=== PATIENT | male | born 1950 | race African-American/Black ===

== ENCOUNTER 2018-08-30 14:46 | Emergency (ER) | payer MEDICARE, BC ==
[~2018-08-30] VITALS: Ht 177.8 cm; Wt 88.5 kg
[~2018-08-30 14:46] MED LIST: NORVASC5 MG ORAL; TRIAMTERENE-HC1 EAC7 PO
[2018-08-30] MEDS ORDERED: ATORVASTATIN CA20 MG ORAL (14:56)
[2018-08-30] MEDS ORDERED: ASPIR 8181 MG ORAL (14:56)
--- NOTE | 2018-08-30 15:25 | Emergency Room Report ---
History of Present Illness General Chief Complaint: General Complaint Source: Patient Present Illness HPI Patient states that 6 days ago he noted joint pain. He states that he was in his normal state of health. He had no recent illness. He denied flulike symptoms. He states he started getting swelling and pain in both his ankles and feet. He states that he also has pain in his hands, wrists and elbows. He states that he also has pain in his back. He feels like every joint hurts. He denies fever or chills. He denies cough or congestion. He denies chest pain or shortness of breath. He denies abdominal pain. He states he has had lack of appetite. He denies recent travel. He denies camping. He denies nausea or vomiting. He denies diarrhea or constipation. He has never had similar symptoms. He has no other complaints. Allergies: Coded Allergies: PENICILLINS (Verified Allergy, Unknown, 08/30/18) Patient History Past Medical History: none, see triage record, HTN, GERD Social History: Reports: alcohol use, drug use; Denies: smoking Reviewed Nursing Documentation: PMH: Agreed; PSxH: Agreed Nursing Documentation-PMH Past Medical History: No History, Except For Hx Cardiac Problems: Yes Hx Hypertension: Yes Hx Cancer: No Hx Gastrointestinal Problems: Yes Hx Neurological Problems: Yes Hx Vertigo: Yes Review of Systems All Other Systems: negative except mentioned in HPI Physical Exam Vital Signs Date Time Temp Pulse Resp B/P (MAP) Pulse Ox O2 Delivery O2 Flow Rate FiO2 08/30/18 14:53 98.6 80 18 123/80 96 Room Air Sp02 EP Interpretation: reviewed, normal General Appearance: no apparent distress, alert, GCS 15, non-toxic Head: normocephalic, atraumatic Eyes: bilateral eye normal inspection, bilateral eye PERRL ENT: hearing grossly normal, normal pharynx, no angioedema, normal voice Neck: full range of motion, supple/symm/no masses Respiratory: chest non-tender, lungs clear, normal breath sounds, no respiratory distress, no retraction, no accessory muscle use, speaking full sentences Cardiovascular #1: regular rate, rhythm, no edema Gastrointestinal: normal bowel sounds, non tender, soft, non-distended, no guarding, no rebound Rectal: deferred Musculoskeletal: back normal, gait/station normal, normal range of motion, other - Bilateral ankle swelling, foot swelling, finger joint swelling bilaterally. Neurologic: alert, oriented x3, responsive, motor strength/tone normal, sensory intact, speech normal Psychiatric: judgement/insight normal, memory normal, mood/affect normal, no suicidal/homicidal ideation Skin: normal color, no rash, warm/dry, well hydrated Medical Decision Making Diagnostic Impression: Primary Impression: Inflammatory arthritis Additional Impressions: Reactive arthritis Renal insufficiency Hypokalemia ER Course This patient has an inflammatory arthritis. He also has renal insufficiency that I am unsure of the acuity of. Possibly he could be developing a glomerulonephritis. Unfortunately, I do not have a recent comparison chemistry. The patient's ESR and CRP are also elevated consistent with a reactive arthritis/inflammatory process. Also my differential is other inflammatory diseases such as rheumatoid arthritis. At this time, the patient is well-appearing and nontoxic. The patient has excellent outpatient follow-up with his primary care physician. He has an appointment for tomorrow to go in and see his primary care physician. The patient was given oral potassium for his hypokalemia. I will also place the patient on a low-dose potassium supplement. He was educated on the findings on his laboratory workup. He was instructed on the importance of close follow-up and repeat labs in the next 48 hours. The patient is given close return precautions and follow-up instructions. Laboratory Tests Test 08/30/18 15:18 White Blood Count 12.7 K/UL (4.8-10.8) H Red Blood Count 4.13 M/UL (4.70-6.10) L Hemoglobin 13.1 G/DL (14.2-18.0) L Hematocrit 36.9 % (42.0-52.0) L Mean Corpuscular Volume 89 FL (80-99) Mean Corpuscular Hemoglobin 31.6 PG (27.0-31.0) H Mean Corpuscular Hemoglobin Concent 35.4 G/DL (32.0-36.0) Red Cell Distribution Width 11.5 % (11.6-14.8) L Platelet Count 403 K/UL (150-450) Mean Platelet Volume 5.7 FL (6.5-10.1) L Neutrophils (%) (Auto) 73.6 % (45.0-75.0) Lymphocytes (%) (Auto) 14.1 % (20.0-45.0) L Monocytes (%) (Auto) 8.6 % (1.0-10.0) Eosinophils (%) (Auto) 3.1 % (0.0-3.0) H Basophils (%) (Auto) 0.7 % (0.0-2.0) Erythrocyte Sedimentation Rate 90 MM/HR (0-20) H Urine Color Pale yellow Urine Appearance Clear Urine pH 7 (4.5-8.0) Urine Specific [place] 1.010 (1.005-1.035) Urine Protein 1+ (NEGATIVE) H Urine Glucose (UA) Negative (NEGATIVE) Urine Ketones Negative (NEGATIVE) Urine Blood 1+ (NEGATIVE) H Urine Nitrite Negative (NEGATIVE) Urine Bilirubin Negative (NEGATIVE) Urine Urobilinogen Normal MG/DL (0.0-1.0) Urine Leukocyte Esterase Negative (NEGATIVE) Urine RBC 2-4 /HPF (0 - 0) H Urine WBC 0-2 /HPF (0 - 0) Urine Squamous Epithelial Cells None /LPF (NONE/OCC) Urine Bacteria None /HPF (NONE) Sodium Level 137 MMOL/L (136-145) Potassium Level 2.7 MMOL/L (3.5-5.1) *L Chloride Level 97 MMOL/L (98-107) L Carbon Dioxide Level 30 MMOL/L (21-32) Anion Gap 11 mmol/L (5-15) Blood Urea Nitrogen 27 mg/dL (7-18) H Creatinine 1.6 MG/DL (0.55-1.30) H Estimate Glomerular Filtration Rate 52.5 mL/min (>60) Glucose Level 100 MG/DL (74-106) Calcium Level 9.0 MG/DL (8.5-10.1) Total Bilirubin 0.6 MG/DL (0.2-1.0) Aspartate Amino Transferase (AST) 34 U/L (15-37) Alanine Aminotransferase (ALT) 54 U/L (12-78) Alkaline Phosphatase 57 U/L (46-116) Total Creatine Kinase 256 U/L (26-308) Creatine Kinase MB 3.3 NG/ML (0.0-3.6) Creatine Kinase MB Relative Index 1.2 Troponin I 0.014 ng/mL (0.000-0.056) C-Reactive Protein, Quantitative 11.2 mg/dL (0.00-0.90) H Total Protein 8.5 G/DL (6.4-8.2) H Albumin 3.3 G/DL (3.4-5.0) L Globulin 5.2 g/dL Albumin/Globulin Ratio 0.6 (1.0-2.7) L Urine Opiates Screen Negative (NEGATIVE) Urine Barbiturates Screen Negative (NEGATIVE) Phencyclidine (PCP) Screen Negative (NEGATIVE) Urine Amphetamines Screen Negative (NEGATIVE) Urine Benzodiazepines Screen Negative (NEGATIVE) Urine Cocaine Screen Negative (NEGATIVE) Urine Marijuana (THC) Screen Negative (NEGATIVE) EKG Diagnostic Results Rate: normal Rhythm: NSR ST Segments: no acute changes Rhythm Strip Diag. Results EP Interpretation: yes Rate: 80's Rhythm: NSR, no PVC's, no ectopy Chest X-Ray Diagnostic Results Chest X-Ray Diagnostic Results : Chest X-Ray Ordered: Yes # of Views/Limited/Complete: 1 View Indication: Other EP Interpretation: Yes Interpretation: no consolidation, no effusion, no pneumothorax, no acute cardiopulmonary disease Impression: No acute disease Last Vital Signs Date Time Temp Pulse Resp B/P (MAP) Pulse Ox O2 Delivery O2 Flow Rate FiO2 08/30/18 14:53 98.6 80 18 123/80 96 Room Air Status: improved Disposition: HOME, SELF-CARE Condition: Improved Jazmin Vizcaino DO Aug 30, 2018 15:25
--- NOTE | 2018-08-30 15:31 | Diagnostic Imaging Report ---
Indication: Chest pain Comparison: None A single view chest radiograph was obtained. Findings: Cardiomediastinal appearance is within normal limits for age. The lungs are clear. Pulmonary vascularity is appropriate. The diaphragmatic contour is smooth and costophrenic angles are sharp. No pleural effusions are identified. The bones are unremarkable. Impression: No acute findings
[2018-08-30 15:39] VITALS: BP 123/80
[2018-08-30 15:48] LABS: BASOPHILS % (AUTO) 0.7 % (0.0-2.0); EOSINOPHILS % (AUTO) 3.1 % (0.0-3.0); HEMATOCRIT 36.9 % (42.0-52.0); HEMOGLOBIN 13.1 G/DL (14.2-18.0); LYMPHOCYTES % (AUTO) 14.1 % (20.0-45.0); MEAN CORPUSCULAR VOLUME 89 FL (80-99); MONOCYTES % (AUTO) 8.6 % (1.0-10.0); NEUTROPHILS % (AUTO) 73.6 % (45.0-75.0); PLATELET COUNT 403 K/UL (150-450); RED BLOOD COUNT 4.13 M/UL (4.70-6.10); RED CELL DISTRIBUTION WIDTH 11.5 % (11.6-14.8); WHITE BLOOD COUNT 12.7 K/UL (4.8-10.8)
[2018-08-30 15:50] LABS: APPEARANCE,URINE CLEAR; BILIRUBIN, URINE NEGATIVE (NEGATIVE); COLOR,URINE PALE YELLOW; GLUCOSE, URINE (UA) NEGATIVE (NEGATIVE); KETONES,URINE NEGATIVE (NEGATIVE); LEUKOCYTE ESTERASE ,URINE NEGATIVE (NEGATIVE); NITRITE,URINE NEGATIVE (NEGATIVE); PH,URINE 7 (4.5-8.0); PROTEIN,URINE 1+ (NEGATIVE); UROBILINOGEN,URINE NORMAL MG/DL (0.0-1.0)
[2018-08-30 16:17] LABS: ALANINE AMINOTRANSFERASE 54 U/L (12-78); ALBUMIN 3.3 G/DL (3.4-5.0); ALBUMIN/GLOBULIN RATIO 0.6 (1.0-2.7); ALKALINE PHOSPHATASE 57 U/L (46-116); ANION GAP 11 mmol/L (5-15); ASPARTATE AMINO TRANSFERASE 34 U/L (15-37); BILIRUBIN,TOTAL 0.6 MG/DL (0.2-1.0); BLOOD UREA NITROGEN 27 mg/dL (7-18); CARBON DIOXIDE 30 MMOL/L (21-32); CHLORIDE 97 MMOL/L (98-107); CKMB 3.3 NG/ML (0.0-3.6); CREATINE KINASE 256 U/L (26-308); CREATININE 1.6 MG/DL (0.55-1.30); SODIUM 137 MMOL/L (136-145)
[2018-08-30 16:20] LABS: POTASSIUM 2.7 MMOL/L (3.5-5.1)
[2018-08-30 17:02] VITALS: BP 138/85
[2018-08-30 17:05] VITALS: BP 138/85
[2018-08-30] MEDS ORDERED: ACETAMINOPHEN500 M3 ORAL (17:12)
[2018-08-30] MEDS ORDERED: POTASSIUM CHLO10 ME3 ORAL (17:12)
--- NOTE | 2018-09-02 15:07 | Cardiology Report ---
APPROVED REPORT EKG Measurement Heart [id number] ID [id number] Normal sinus rhythm Incomplete right bundle branch block Prolonged QT Abnormal ECG
== END 2018-08-30 17:14 | disposition home or self-care (01) ==
LOC: EMR 15:20
DX: M19.90 Unspecified osteoarthritis, unspecified site (principal); M02.39 Reiter's disease, multiple sites; N28.9 Disorder of kidney and ureter, unspecified; E87.6 Hypokalemia; R42 Dizziness and giddiness; I10 Essential (primary) hypertension; K21.9 Gastro-esophageal reflux disease without esophagitis; M79.672 Pain in left foot; M79.671 Pain in right foot; M25.572 Pain in left ankle and joints of left foot; M25.571 Pain in right ankle and joints of right foot; M79.643 Pain in unspecified hand; M25.539 Pain in unspecified wrist; M25.529 Pain in unspecified elbow; M54.9 Dorsalgia, unspecified; Z86.79 Personal history of other diseases of the circulatory system; Z86.69 Personal history of other diseases of the nervous system and sense organs
CPT/HCPCS: 36415; 71045; 80053; 80307; 81003; 82550; 82553; 84484; 85025; 85651; 86140; 93005; 99283; J8499